=== PATIENT | female | born 1960 | race Caucasian/White ===

== ENCOUNTER 2016-12-17 10:53 | Day surgery (SDC) | payer MEDICAID ==
[~2016-12-17 10:53] MED LIST: ALENDRONATE SOD70 MG PO; DILANTIN100 MG PO; MOBIC7.5 MG PO
[2016-12-17 11:48] LABS: HEMATOCRIT 41.6 % (36.0-48.0); MCH 31.5 pg (26.0-34.0); MCHC 33.7 g/dL (31.0-37.0); MCV 93.7 fL (80.0-100.0); MEAN PLATELET VOLUME 9.8 fL (7.4-10.4); RBC 4.44 10x6/uL (4.00-5.40); RDW 12.4 % (11.5-14.5); WBC 5.9 10x3/uL (4.8-10.8)
[2016-12-17] MEDS ORDERED: DILANTIN100 MG PO (11:55)
[2016-12-17] MEDS ORDERED: VENTOLIN HFA18 GM INH (11:55)
[2016-12-17] MEDS ORDERED: ALENDRONATE SOD70 MG PO (11:56)
[2016-12-17 12:01] VITALS: BP 98/63; BMI 14.7
[2016-12-17] MEDS ORDERED: OMEPRAZOLE40 MG PO (14:06)
--- NOTE | 2016-12-17 14:24 | NUR ---
PAPERWORK COMPETED. PT DRESSED, DISCHARGE INSTRUCTIONS GIVEN. WHEELCHAIR CALLED FOR DISCHARGE.
--- NOTE | 2016-12-22 09:05 | OP ---
PATIENT NAME: ZAYRA MYLES MEDICAL RECORD: [id number] :58 LOCATION:D.OPS ADMISSION DATE: SURGEON: SOCORRO RICH DO DATE OF OPERATION: 12/17/2016 PROCEDURE: EGD with biopsies. INDICATIONS: Heartburn, weight loss, epigastric pain. MEDICATIONS: Propofol 80 mg IV per anesthesia. FINDINGS: Informed consent was given. The patient was made comfortable with the above medication. After reaching an adequate level of sedation by slow IV push, the patient was placed on her left side. The endoscope was then advanced under direct visualization through the mouth to the second portion of the duodenum. Upper, middle and distal thirds of the esophagus appeared normal. At the GE junction, there was some mild LA class C esophagitis present with a very low possibility of Chen's esophagus. Random biopsies were taken with cold forceps. The scope was advanced down to the stomach and retroflexed to view the cardia, where diminutive sliding hiatal hernia was present. The fundus in the body of the stomach appeared normal. In the antrum and prepyloric region, there was erythema and granularity in a patchy and streaky linear formation. This is consistent with possible erosive gastritis. Random biopsies were taken. The scope was advanced into the duodenum where the bulb and second portion of the duodenum appeared normal. The scope was withdrawn from the patient. The patient tolerated the procedure well and there were no complications. IMPRESSIONS: 1. Mild esophagitis at the GE junction -- biopsies taken. 2. Possible gastritis of the antrum and prepyloric region -- biopsies taken. 3. Diminutive sliding hiatal hernia. PLAN AND RECOMMENDATIONS: 1. Discharge home when recovery parameters are met. 2. Continue current diet. 3. Reflux precautions. 4. Begin omeprazole 40 mg daily every morning for 8 weeks. 5. Colonoscopy as scheduled. 6. We will follow up with symptoms at time of lower endoscopy. 7. Return to the GI clinic as needed. TRANSINT:[id number] Voice Confirmation ID: [id number] DOCUMENT ID: [id number] SOCORRO RICH DO at 0905 CC: [id number] DICTATION DATE: 12/17/16 1336 UNIFIED COMMUNICATIONS ARCHITECT: 12/17/16 1905 [facility] 12/17/16 [facility] [address] [place] [address]
== END 2016-12-17 14:25 | disposition home or self-care (01) ==
LOC: D.OPS 10:53
PROVIDERS: Anesthesiology
DX: R12 Heartburn (principal); R10.13 Epigastric pain; K44.9 Diaphragmatic hernia without obstruction or gangrene; R63.4 Abnormal weight loss; K20.9 Esophagitis, unspecified

== ENCOUNTER 2017-01-13 10:11 | Day surgery (SDC) | payer MEDICAID ==
[~2017-01-13] VITALS: Ht 170.2 cm; Wt 42.7 kg
[~2017-01-13 10:11] MED LIST changes: +OMEPRAZOLE40 MG PO; +VENTOLIN HFA18 GM INH
[2017-01-13 10:53] VITALS: BP 107/70; Ht 170.2 cm; Wt 42.7 kg
[2017-01-13 10:58] LABS: HEMATOCRIT 41.8 % (36.0-48.0); MCH 31.2 pg (26.0-34.0); MCHC 33.5 g/dL (31.0-37.0); MCV 93.1 fL (80.0-100.0); MEAN PLATELET VOLUME 10.3 fL (7.4-10.4); RBC 4.49 10x6/uL (4.00-5.40); RDW 12.5 % (11.5-14.5); WBC 5.1 10x3/uL (4.8-10.8)
--- NOTE | 2017-01-14 16:51 | OP ---
PATIENT NAME: ZAYRA MYLES MEDICAL RECORD: [id number] :58 LOCATION:D.OPS ADMISSION DATE: SURGEON: SOCORRO RICH DO DATE OF OPERATION: 01/13/2017 PROCEDURE: Colonoscopy with snare polypectomy. INDICATIONS FOR PROCEDURE: Abnormal weight loss. SCOPE: Olympus video pediatric colonoscope. MEDICATIONS: Propofol 420 mg IV per anesthesia. Withdrawal time greater than 15 minutes. ESTIMATED BLOOD LOSS: Minimal. FINDINGS: Informed consent was given. The patient was made comfortable with the above medication. After reaching an adequate level of sedation by slow IV push, the patient was placed on her left side. A digital rectal examination was performed and was normal. The endoscope was then advanced under direct visualization through the anus to the terminal ileum. The scope was slowly withdrawn and the mucosa was carefully examined. There were 2 polyps found on this examination. Both were located in the sigmoid colon. Both measured approximately 8 mm in diameter and were sessile. Both were removed with hot snare polypectomy without lifting. Both were removed in 1 piece and completely retrieved. Retroflexion was performed in the rectum without abnormalities visualized. There were no diverticula or other findings on this examination, and the mucosa appeared normal in its entirety. The scope was withdrawn from the patient. The patient tolerated the procedure well and there were no complications. IMPRESSION: Two polyps removed from the sigmoid colon as described above. PLAN AND RECOMMENDATIONS: 1. Discharge home when recovery parameters are met. 2. Continue current medications. 3. Continue current diet. 4. Consider CT scans of the chest, abdomen and pelvis based on the history of abnormal weight loss. The patient is a smoker; therefore, the chest should be included if CT scans are performed. 5. Recall colonoscopy will be dependent on biopsy results of 2 polyps. At this time, I anticipate that these will be tubular adenomas, which should be a recall of 5 years. TRANSINT:[id number] Voice Confirmation ID: [id number] DOCUMENT ID: [id number] SOCORRO RICH DO at 1651 CC: [id number] DICTATION DATE: 01/13/17 1301 ELECTRIC INSTALLER: 01/13/172031 [facility] 01/13/17 [place] [address]
== END 2017-01-13 14:05 | disposition home or self-care (01) ==
LOC: D.OPS 10:11
PROVIDERS: Anesthesiology
DX: K63.5 Polyp of colon (principal)

== ENCOUNTER 2018-05-14 10:25 | Emergency (ER) | payer MEDICAID ==
[~2018-05-14] VITALS: Ht 170.2 cm; Wt 41.4 kg
[2018-05-14 10:33] VITALS: Ht 170.2 cm; Wt 41.4 kg
[2018-05-14] MEDS ORDERED: TORADOL10 MG PO (16:25)
[2018-05-14 16:36] VITALS: BP 107/59
== END 2018-05-14 16:37 | disposition home or self-care (01) ==
LOC: D.ER 10:25
DX: M25.532 Pain in left wrist (principal); M62.532 Muscle wasting and atrophy, not elsewhere classified, left forearm; M79.632 Pain in left forearm; G40.909 Epilepsy, unspecified, not intractable, without status epilepticus; J45.909 Unspecified asthma, uncomplicated; K21.9 Gastro-esophageal reflux disease without esophagitis; F17.200 Nicotine dependence, unspecified, uncomplicated